=== PATIENT | female | born 1975 | race Caucasian/White ===

== ENCOUNTER 2021-05-16 03:27 | Inpatient (IN) ==
[2021-05-16] MEDS ORDERED: PROMETHAZINE 25 MG/1 ML VIAL ONE (04:11)
[2021-05-16 04:27] LABS: Basophils % 0.2 % (0.0-0.8); Eosinophils # 0.3 10*3/uL (0.0-0.87); Eosinophils % 2.4 % (0.00-10.9); Hematocrit 31.3 VOL% (35.7-47.0); Immature Granulocytes % 4.2 %; Immature Granulocytes Absolute 0.53 #; Lymphocytes # 1.6 10*3/uL (1.4-4.0); Lymphocytes % 12.6 % (21.3-54.2); Mean Corpuscular HGB Conc 31.9 GM/DL (32-36); Mean Corpuscular Volume 86.7 FL (87-102); Mean Platelet Volume 8.8 FL (9.6-12.0); Monocytes % 6.1 % (1.7-12.7); NRBC # 0.03 10*3/uL; Neutrophils % 74.5 % (38.7-73.9); Platelet Count 911 T/CUMM (130-400); Red Blood Count 3.61 MC/CUMM (3.8-5.5); Red Cell Distribution Width 13.9 % (9.3-17.3); White Blood Count 12.5 T/CUMM (4-12)
[2021-05-16 04:48] LABS: Band Neutrophils 1 % (0-10); Eosinophils 7 % (0-10); Hypochromasia 1+; Lymphocytes 12 % (20-55); Microcytosis 1+; Myelocytes 1 %; Polychromasia Slight; Segmented Neutrophils 73 % (50-85); Total Cells Counted 100
[2021-05-16 04:50] LABS: Platelet Estimate Increased
[2021-05-16] MEDS ORDERED: PROMETHAZINE 25 MG/1 ML VIAL IM STA (05:00)
[2021-05-16 05:16] LABS: Alanine Aminotransferase 16 U/L (13-56); Alkaline Phosphatase 69 U/L (45-117); Aspartate Amino Transferase 37 U/L (0-37); Bilirubin,Total < 0.39 MG/DL (0.20-1.00); Blood Urea Nitrogen 11 MG/DL (7-18); Calcium 8.3 MG/DL (8.5-10.1); Carbon Dioxide 27 MMOL/L (21-32); Estimated Glom Filtration Rate 108 ML/MIN; Glucose 120 MG/DL (74-106); Osmolality,Calculated 289.6 MOS/KG (273-304); Potassium 2.8 MMOL/L (3.5-5.1); Sodium 146 MMOL/L (136-145); Total Protein 6.5 G/DL (6.4-8.2)
[2021-05-16] MEDS ORDERED: ACETAMINOPHEN 325 MG TABLET PO PRN (05:26)
[2021-05-16] MEDS ORDERED: guaiFENesin/DM ER 600-30 MG TABLET PO PRN (05:26)
[2021-05-16] MEDS ORDERED: GLUCAGON 1 MG VIAL IM PRN (05:26)
[2021-05-16] MEDS ORDERED: NICOTINE 21 MG/24 HR PATCH TRANSDERM PRN (05:26)
[2021-05-16] MEDS ORDERED: DEXTROSE 50% 25 GM/50 ML VIAL IV PRN (05:26)
[2021-05-16] MEDS ORDERED: hydrALAZINE 20 MG/1 ML VIAL IV PRN (05:26)
[2021-05-16] MEDS ORDERED: diphenhydrAMINE CAP 25 MG CAPSULE PO PRN (05:26)
[2021-05-16] MEDS ORDERED: methylPREDNISolone SOD SUC 40 MG/1 ML VIAL IV SCH (05:30)
[2021-05-16] MEDS ORDERED: SODIUM CHLORIDE 0.9% 1,000 ML IV SCH (05:30)
[2021-05-16] MEDS ORDERED: POTASSIUM CHLORIDE 20 MEQ TABLET PO STA (05:33)
[2021-05-16] MEDS: cefTRIAXone 1,000 MG in SODIUM CHLORIDE 0.9% 100 ML IV SCH (05:52)
[2021-05-16 06:42] LABS: Ferritin 183.1 ng/ml (8-252)
[2021-05-16] MEDS: ALBUTEROL/IPRATROPIUM 3 ML NEB RESP TX SCH ×3 (07:13→19:32)
[2021-05-16] MEDS: ONDANSETRON 4 MG/2 ML VIAL IV PRN ×4 (07:20→21:53)
[2021-05-16] MEDS: PROMETHAZINE 25 MG/1 ML VIAL IM PRN (09:10)
[2021-05-16] MEDS: ALUM/MAG/SIMETH/LIDO VISC 1:1 30 ML BOTTLE PO ONE ×2 (09:11→11:27)
[2021-05-16] MEDS: POTASSIUM CHLORIDE INJ 40 MEQ in SODIUM CHLORIDE 0.45% 1,000 ML IV SCH ×2 (09:11→19:17)
[2021-05-16] MEDS ORDERED: ALUMINUM/MAGNES/SIMETH MAX STR 30 ML UDCUP PO PRN (09:17)
[2021-05-16 10:44] LABS: Basophils % 0.2 % (0.0-0.8); Eosinophils % 0.2 % (0.00-10.9); Hematocrit 32.1 VOL% (35.7-47.0); Hemoglobin 10.2 GM/DL (12.0-16.0); Immature Granulocytes % 4.9 %; Immature Granulocytes Absolute 0.64 #; Lymphocytes # 0.9 10*3/uL (1.4-4.0); Lymphocytes % 6.9 % (21.3-54.2); Mean Corpuscular HGB Conc 31.8 GM/DL (32-36); Mean Corpuscular Volume 88.9 FL (87-102); Mean Platelet Volume 8.6 FL (9.6-12.0); Monocytes % 1.9 % (1.7-12.7); NRBC # 0.02 10*3/uL; Neutrophils % 85.9 % (38.7-73.9); Platelet Count 924 T/CUMM (130-400); Red Blood Count 3.61 MC/CUMM (3.8-5.5); Red Cell Distribution Width 13.9 % (9.3-17.3)
[2021-05-16 10:54] LABS: Eosinophils 1 % (0-10); Hypochromasia 1+; Lymphocytes 5 % (20-55); Microcytosis 1+; Platelet Estimate Increased; Segmented Neutrophils 91 % (50-85); Total Cells Counted 100
[2021-05-16 11:17] LABS: % Iron Saturation 14.7 % (18-50); Ferritin 182.1 ng/ml (8-252)
[2021-05-16 11:48] LABS: Sedimentation Rate-Westergren 109 MM/HR (0-20)
[2021-05-16] MEDS: PANTOPRAZOLE 40 MG VIAL IV SCH (12:25)
[2021-05-16] MEDS: AZITHROMYCIN INJ 500 MG in SODIUM CHLORIDE 0.9% 250 ML IV SCH (12:27)
[2021-05-16 14:22] LABS: Folate 23.55 NG/ML (5.38-24.0); Vitamin B12 1329 PG/ML (211-911)
[2021-05-16] MEDS: MORPHINE 2 MG/1 ML SYRINGE IV PRN ×3 (15:22→23:14)
[2021-05-16] MEDS: methylPREDNISolone SOD SUC 40 MG/1 ML VIAL IV SCH (17:22)
[2021-05-16] MEDS: ENOXAPARIN 40 MG/0.4 ML SYRINGE SUBCUT SCH (21:45)
[2021-05-17] MEDS: ALBUTEROL/IPRATROPIUM 3 ML NEB RESP TX SCH ×4 (01:26→20:10)
[2021-05-17] MEDS: methylPREDNISolone SOD SUC 40 MG/1 ML VIAL IV SCH ×3 (01:29→16:30)
[2021-05-17] MEDS: MORPHINE 2 MG/1 ML SYRINGE IV PRN ×5 (03:23→21:09)
[2021-05-17] MEDS: POTASSIUM CHLORIDE INJ 40 MEQ in SODIUM CHLORIDE 0.45% 1,000 ML IV SCH (03:28)
[2021-05-17] MEDS: cefTRIAXone 1,000 MG in SODIUM CHLORIDE 0.9% 100 ML IV SCH (05:38)
[2021-05-17 05:42] LABS: Basophils % 0.2 % (0.0-0.8); Hematocrit 29.4 VOL% (35.7-47.0); Hemoglobin 9.4 GM/DL (12.0-16.0); Immature Granulocytes % 3.9 %; Immature Granulocytes Absolute 0.93 #; Lymphocytes # 1.6 10*3/uL (1.4-4.0); Lymphocytes % 6.5 % (21.3-54.2); Mean Corpuscular Volume 88.6 FL (87-102); Mean Platelet Volume 8.9 FL (9.6-12.0); Monocytes % 3.1 % (1.7-12.7); Neutrophils % 86.3 % (38.7-73.9); Platelet Count 856 T/CUMM (130-400); Red Blood Count 3.32 MC/CUMM (3.8-5.5)
[2021-05-17 06:02] LABS: Calcium 8.7 MG/DL (8.5-10.1); Osmolality,Calculated 273.7 MOS/KG (273-304)
[2021-05-17 06:09] LABS: Band Neutrophils 1 % (0-10); Hypochromasia 1+; Lymphocytes 4 % (20-55); Microcytosis 1+; Segmented Neutrophils 91 % (50-85); Total Cells Counted 100
[2021-05-17 06:10] LABS: Platelet Estimate Increased
[2021-05-17] MEDS: PANTOPRAZOLE 40 MG VIAL IV SCH (08:10)
[2021-05-17 09:54] LABS: Hemoglobin A1 (Alkaline) 97.6 % (96.5-98.5); Hemoglobin A2 (Alkaline) 2.4 % (1.5-3.5)
[2021-05-17] MEDS: AZITHROMYCIN INJ 500 MG in SODIUM CHLORIDE 0.9% 250 ML IV SCH (12:29)
[2021-05-17] MEDS: ONDANSETRON 4 MG/2 ML VIAL IV PRN (16:40)
[2021-05-17] MEDS: PROMETHAZINE 25 MG/1 ML VIAL IM PRN (18:34)
[2021-05-17] MEDS: ENOXAPARIN 40 MG/0.4 ML SYRINGE SUBCUT SCH (21:09)
[2021-05-18] MEDS: methylPREDNISolone SOD SUC 40 MG/1 ML VIAL IV SCH (01:00)
[2021-05-18] MEDS: ALBUTEROL/IPRATROPIUM 3 ML NEB RESP TX SCH ×2 (01:37→07:23)
[2021-05-18] MEDS: cefTRIAXone 1,000 MG in SODIUM CHLORIDE 0.9% 100 ML IV SCH (04:53)
[2021-05-18] MEDS: MORPHINE 2 MG/1 ML SYRINGE IV PRN ×2 (04:54→11:02)
[2021-05-18 06:24] LABS: Basophils % 0.1 % (0.0-0.8); Eosinophils % 0.2 % (0.00-10.9); Hematocrit 34.9 VOL% (35.7-47.0); Hemoglobin 10.9 GM/DL (12.0-16.0); Immature Granulocytes % 2.5 %; Immature Granulocytes Absolute 0.52 #; Lymphocytes # 1.5 10*3/uL (1.4-4.0); Lymphocytes % 7.2 % (21.3-54.2); Mean Corpuscular HGB Conc 31.2 GM/DL (32-36); Mean Corpuscular Volume 88.6 FL (87-102); Mean Platelet Volume 8.7 FL (9.6-12.0); Monocytes % 3.6 % (1.7-12.7); Neutrophils % 86.4 % (38.7-73.9); Platelet Count 930 T/CUMM (130-400); Red Blood Count 3.94 MC/CUMM (3.8-5.5); Red Cell Distribution Width 14.2 % (9.3-17.3); White Blood Count 20.4 T/CUMM (4-12)
[2021-05-18 06:39] LABS: Calcium 9.1 MG/DL (8.5-10.1); Osmolality,Calculated 277.5 MOS/KG (273-304); Potassium 3.8 MMOL/L (3.5-5.1)
[2021-05-18 06:47] LABS: Hypersegmented Neutrophil SLIGHT; Hypochromasia 1+; Lymphocytes 11 % (20-55); Microcytosis 1+; Platelet Estimate Increased; Segmented Neutrophils 88 % (50-85); Total Cells Counted 100
[2021-05-18] MEDS ORDERED: predniSONE 20 MG TABLET PO SCH (09:00)
[2021-05-18] MEDS: PANTOPRAZOLE 40 MG VIAL IV SCH (09:07)
[2021-05-18] MEDS: ONDANSETRON 4 MG/2 ML VIAL IV PRN (10:49)
[2021-05-18 11:39] VITALS: BP 131/56
== END 2021-05-18 11:53 | disposition home or self-care (01) | DRG 194 ==
LOC: N.ED 03:27 → N.EDINP 05:28 → SUATTDRO 05:28 → N.5E 07:46
PROVIDERS: ADMIT Internal Medicine; ATTEND Internal Medicine